=== PATIENT | female | born 1935 | race Caucasian/White ===

== ENCOUNTER 2017-11-22 02:32 | Emergency (ER) | payer MEDICARE ==
[2017-11-22] MEDS ORDERED: Labetalol HCl 100 MG/20 ML VIAL ONE (02:52)
[2017-11-22] MEDS ORDERED: cloNIDine 0.1 MG TAB ONE (03:20)
[2017-11-22] MEDS ORDERED: Insulin Regular 300 UNITS/3 ML VIAL ONE (03:29)
[2017-11-22 03:50] LABS: Eosinophils 3 % (0-10); Hemoglobin 12.8 g/dL (12.0-16.0); Lymphocytes 27 % (21-51); MDiff Complete? YES; Mean Corpuscular HGB CONC 32.5 g/dL (32.0-36.0); Mean Corpuscular Hemoglobin 27.2 pg (27.0-31.0); Mean Corpuscular Volume 83.9 fL (78.0-98.0); Mean Platelet Volume 6.6 fL (7.4-10.4); Monocytes 5 % (0-10); Neutrophil 61 % (42-75); PLT Morphology Comment Appears Adequate; Platelet Count 222 thou/uL (130-400); RBC Distribution Width 12.8 % (11.5-14.5); RBC Morphology Normal; Reactive Lymphocytes 4 % (0-10); Red Blood Cell (RBC) Count 4.72 mill/uL (4.20-5.40); White Blood Cell (WBC) Count 9.6 thou/uL (4.8-10.8)
[2017-11-22 03:55] LABS: ALT (SGPT) 19 U/L (8-55); AST (SGOT) 19 U/L (5-34); Albumin 3.9 g/dL (3.4-4.8); Alkaline Phosphatase 87 U/L (40-150); Anion Gap 14 mmol/L (10-20); BUN (Urea Nitrogen) 17 mg/dL (9.8-20.1); Bilirubin, Total 0.8 mg/dL (0.2-1.2); Calc. Creatinine Clearance 0 mL/min (70-130); Calcium 9.5 mg/dL (7.8-10.44); Carbon Dioxide 21 mmol/L (23-31); Chloride 102 mmol/L (98-107); Estimated GFR-MDRD 43; Globulin 3.2 g/dL (2.4-3.5); Glucose 304 mg/dL (83-110); Potassium 3.7 mmol/L (3.5-5.1); Protein, Total 7.1 g/dL (6.0-8.3); Sodium 133 mmol/L (136-145)
[2017-11-22] MEDS ORDERED: Amlodipine 5 MG TAB ONE (03:58)
[2017-11-22] MEDS ORDERED: Sodium Chloride 0.9% 1,000 ML BAG ONE (07:24)
[2017-11-22 08:29] LABS: Bicarbonate (HCO3v) 24.2 mmol/L (1.0-85.0); CO2 Tension (PvCO2) 32.4 mmHg (41.0-51.0); O2 Tension (PvO2) 54.8 mmHg (35.0-45.0); pH (Venous) 7.481 (7.35-7.45)
[2017-11-22 08:30] LABS: Base Excess-Venous 1.3 mmol/L (0 (+/- 2.5)); Calcium, Ionized 1.11 mmol/L (1.12-1.32); Potassium 3.5 mmol/L (3.4-4.7); T. Carbon Dioxide 25.2 mmol/L (1.0-85.0); vO2 Saturation-calc 90.6 % (94-98)
== END 2017-11-22 04:10 | disposition home or self-care (01) ==
LOC: MADERS 02:32
DX: E11.65 Type 2 diabetes mellitus with hyperglycemia (principal); I10 Essential (primary) hypertension; E78.5 Hyperlipidemia, unspecified
CPT/HCPCS: 36416; 80053; 82330; 82803; 84484; 85025; 93005; 96361; 96374; J1815; J7050